=== PATIENT | female | born 1990 | race Caucasian/White ===

== ENCOUNTER 2021-12-30 12:00 | Inpatient (IN) | payer BC ==
[2021-12-30] VITALS (25 sets, daily range): BP systolic 93–131; BP diastolic 51–96; PULSE 57–100; TEMP 98.5–99.1
[~2021-12-30] VITALS: Ht 160 cm; Wt 64.1 kg
[~2021-12-30 12:00] MED LIST: BENADRYL25 M2; CLARITIN 1010 MG/TAB; IBU800 M1 PO; NO HOME MEDICATIONS; PRENATAL1 TA7 PO; ROXICODONE 55 MG/TAB PO; TUMS500 MG
--- NOTE | 2021-12-30 12:00 | NUR ---
Pt arrived on unit ambulatory and with concerns for possible ROM. Pt reports "leaking" clear fluid since 1100 this morning. Pt also reports occasional contractions, denies vaginal bleeding and reports normal movement. EFM and toco monitors started. Vital signs WNL. SVE by this RN with positive amnio-trace. Dr. Mcgee notified. See physician notification for details.
[2021-12-30] MEDS ORDERED: GLUCOPHAGE500 MG/TAB PO (12:21)
[2021-12-30] MEDS ORDERED: SYNTHROID0.05 MG/TA PO (12:21)
[2021-12-30 13:45] LABS: BASO % 0.4 % (0.0-2.0); EOS % 0.5 % (0.0-4.0); GRAN # 5.9 K/mm3 (1.4-6.5); GRAN % 78.7 % (42.2-75.2); HEMOGLOBIN 10.6 g/dl (12.5-16.0); LYMPH # 1.1 K/mm3 (1.2-3.4); LYMPH % 14.8 % (20.0-51.0); MEAN CELL VOLUME 93 fl (80.0-100.0); MEAN CORPUSCULAR HEMOGLOBIN 31 pg (27-31); MEAN CORPUSCULAR HGB CONC 34 g/dl (33.0-37.0); MONO # 0.4 K/mm3 (0.1-0.6); MONO % 4.7 % (1.7-9.3); PLATELET COUNT 186 K/mm3 (130-400); RED BLOOD COUNT 3.38 M/mm3 (4.10-5.30); REDCELL DISTRIBUTION WIDTH-CV 12.2 % (11.5-14.5)
[2021-12-30 13:51] LABS: HEMATOCRIT 31.3 % (37.0-47.0)
--- NOTE | 2021-12-30 14:59 | NUR ---
1340- PT ON BIRTHING BALL. CATEGORY 1 STRIP AT THIS TIME.
--- NOTE | 2021-12-30 16:18 | NUR ---
1400- PT AMBULATING IN HALLWAY. PT STABLE. CATEGORY 1 STRIP AT THIS TIME.
--- NOTE | 2021-12-30 18:50 | NUR ---
FHR deceleration down to 60 bpm. Turned to right lateral with no improvement in FHR, remains low in 70s. Repositioned to hands and knees, pitocin off, additional staff called to room. 1854 no improvement in FHR, remains in 80s, positioned to left lateral. SVE by MAUREEN Lazo /2. Dr. Mcgee on unit and called to bedside. Lactated Ringers bolus started. Oxygen on at 10 L. [address] Mcgee at this time. 1858 steady increase in FHR. Plan of care reviewed with patient and spouse. Encouraged patient to get epidural now in case of emergency.
--- NOTE | 2021-12-30 19:18 | NUR ---
1910 - Pt agreeable to get epidural now. SUPRIYA Mendoza on unit and will come to bedside. 191 - Pt positioned to sitting on edge of bed. Epidural procedure, risks, and benefits reviewed with patient and spouse. Pt verbalized understanding. 1916 - Single shot by Kelly, pt denies any adverse reactions. 1917 - Test dose at this time. 192 - Pt positioned to left lateral. Bed in low and locked position, call light within reach. Safety precautions reviewed. See anesthesia record
--- NOTE | 2021-12-30 20:15 | NUR ---
Adkins catheter placed at this time to dependent drainage. Clear yellow urine out. Secured to leg with statlock. SVE /-3. Verbal orders from Dr. Mcgee to start pitocin. 2020 - Pitocin intitiated at 2 mu/min per protocol.
--- NOTE | 2021-12-30 21:40 | NUR ---
Recurrent early decelerations noted on FHR tracing. SVE /2. Plan of care reviewed with patient and spouse.
--- NOTE | 2021-12-30 22:05 | NUR ---
Pt called nurse into room, pt visibly uncomfortable and feeling a lot of rectal pressure. SVE complete/+2. Roles in another delivery and updated, verbal orders to encourage patient to breath through contractions. 2212 - pitocin off at this time while waiting for physician to be at bedside.
--- NOTE | 2021-12-30 22:46 | NUR ---
2220 - Dr. Mcgee at bedside. Pt positioned into footplates. Adkins catheter removed at this time, 250 urine out. Nursery RN Cassandra Sims at bedside. 2222 - Dr. Mcgee gowned and gloved at perineum. Pt instructed on pushing techniques, verbalized understanding. 2224 - Initial push at this time. Pushing well with contractions. Variable deceleration down to 60 bpm with pushes, spontaneous return to baseline. 2233 - Recurrent variable decelerations down to 60 bpm with pushes. FSE removed at this time by Dr. Mcgee, external monitor in place. 2244 - FHR baseline in 100s. Maternal effort decreasing with pushes and pt nauseous and throwing up. Vacuum assisted delivery discuss with patient and spouse, verbalized understanding and agreeable to plan. 2245 - Vacuum applied successfully. 2246 - Vacuum pumped to green. Gentle traction applied by Dr. Mcgee with maternal pushes. Delivery of viable boy at this time. Meconium fluid noted after baby delivered. Infant placed to mothers chest, care of infant assumed to Joi Sims RN. Cord clamped and cut by Dr. Mcgee. Cord blood obtained. Cord gases obtained. 2253 - Spontaneous delivery of intact placenta. Pitocin restarted at 333 mL/hr per protocol. Fundus firm and down 3 from umbilicus. Scant amount of bleeding noted. Second degree perineal laceration repaired by Dr. Mcgee. EBL [address] Mcgee 2300 - Pericare provided. New chux beneath patient. Ice pack to perineum. Pt repositioned in bed for comfort. recovery started. See physician delivery note.
[2021-12-31] VITALS (8 sets, daily range): BP systolic 88–114; BP diastolic 54–76; PULSE 58–83; TEMP 97.2–98.6
--- NOTE | 2021-12-31 02:00 | NUR ---
Pt unable to lift and hold right leg off of bed at this time and patient still feeling nauseous and tired. Will try to ambulate again in about 1 hour.
--- NOTE | 2021-12-31 03:30 | NUR ---
Pt able to lift and hold each leg off of bed for 5 seconds. Pt repositioned to sitting on edge of bed. Epidural catheter removed. Tip smooth, blue, and intact. Pt starts to feel nauseous, dry heaving, and reports head "feeling funny." Pt positioned back into bed. BP 109/57 HR 78. Straigh cath at this time 300 mL urine out. Mesh panties and peripad applied. New gown on. Pt positioned in bed for comfort, recommended pt sleep for another hour.
--- NOTE | 2021-12-31 05:15 | NUR ---
Pt reports feeling better. Pt able to move to wheelchair independently and transferred to room 214 in stable condition. Motrin given, see MAR. Pt educated on need of 3 measured voids.
--- NOTE | 2021-12-31 08:40 | NUR ---
PATIENT C/O ABD CRAMPING, CANNOT HAVE MOTRIN AGAIN UNTIL 1300. PT HAS DOCUMENTED ALLERGY TO CODIENE AND TYLENOL. PT STATES IT WAS FROM TYLENOL 3 WHICH GAVE HER A RASH. PT VERBALIZED SHE WOULD LIKE A NARCOTIC FOR PAIN. RN DISCUSSED ALLERGY AND PATIENT'S PAIN LEVEL WITH DR. ROBERSON. MONIE FOR OXYTOCIN 5 MG Q 4 HOURS NEEDED FOR PAIN. RN CALLED PHARMACY REGARDIING POTENTIAL FOR ALLERGIC REACTION OF RASH. OXYTOCIN 5 MG ADMINISTERED. SIDE EFFECTS DISCUSSED WITH PATIENT, UNDERSTANDING VERBALIZED. PT HAS NOT YET VOIDED, STRAIGHT CATH'ED AT APPROX 0500. RN ADVISED PT TO TRY AND VOID AFTER SHE FEELS PAIN RELIEVE.
--- NOTE | 2021-12-31 16:02 | NUR ---
Patient states she is nauseated due to being in pain. Pt not able to have pain medication for 45 min and informed of this. Warm blanket offered and accepted by patient. RN offered medication for nausea, pt declined at this time.
--- NOTE | 2021-12-31 19:20 | NUR ---
To bedside at this time. Patient is dangled at the edge of the bed while twisted and hugging a pillow on the bed next to her. Patient reports cramps that start in her back and radiate to the front. Requests pain medication at this time. Discussed a heating pad. Heating pad to bedside, pt states that her pain is significantly better with the heating pad. Reports the cramps have come and gone all day and when they start she gets nausous. Crackers, peanutbutter and sprite to bedside. Patient states she ate a sandwich at 1800. Updated whiteboard and reviewed POC.
[2022-01-01] MEDS ORDERED: MOTRIN 800800 MG/TAB PO (07:45)
[2022-01-01] MEDS ORDERED: ROXICODONE 55 MG/TAB PO (07:46)
[2022-01-01 07:58] VITALS: BP 98/68; PULSE 134; TEMP 97.5
--- NOTE | 2022-01-01 08:00 | NUR ---
RN into room for patient assessment and VS. Pain medications given. HR noted to be 134-138. BP 90's/60's. Pulse ox 98% on RA. Pt denies SOB. Bleeding has been WNL. Fundus firm and down 3. Pt states she drank 2 mugs of water through the night. Denies other symptoms. Pt up to walk. Pulse ox remain's 98%. HR up to 140's, Pt states she feels "slightly more out of breath" but denies other symptoms. 0835: HR noted to be 88. Pt denies symptoms.
[2022-01-01 08:37] VITALS: PULSE 88
== END 2022-01-01 14:10 | disposition home or self-care (01) | DRG 807 ==
LOC: LDRO 12:00 → OB 12:28 → LDR 12:28 → OB 12-31 05:15
PROVIDERS: Obstetrics & Gynecology; ADMIT Student in an Organized Health Care Education/Training Program
PROC: 10D07Z6 Extraction of Products of Conception, Vacuum, Via Natural or Artificial Opening (ICD-10-PCS; principal; 2021-12-30)
PROC: 0KQM0ZZ Repair Perineum Muscle, Open Approach (ICD-10-PCS; 2021-12-30)
DX: O99.284 Endocrine, nutritional and metabolic diseases complicating childbirth (principal); Z37.0 Single live birth; E03.9 Hypothyroidism, unspecified; Z3A.39 39 weeks gestation of pregnancy; Z79.890 Hormone replacement therapy; O76 Abnormality in fetal heart rate and rhythm complicating labor and delivery; O70.1 Second degree perineal laceration during delivery; O77.0 Labor and delivery complicated by meconium in amniotic fluid; E28.2 Polycystic ovarian syndrome
CPT/HCPCS: J2590; J7120